=== PATIENT | female | born 1970 | race American Indian/Alaskan Native ===

== ENCOUNTER 2017-07-13 16:07 | Emergency (ER) | payer BC ==
[2017-07-13 16:33] VITALS: BP 130/82
[2017-07-13 17:01] LABS: Anion Gap 18 mmol/L; BUN/Creatinine Ratio 10; Blood Urea Nitrogen 6 mg/dL (7-17); Calcium 8.7 mg/dL (8.4-10.2); Carbon Dioxide 23 mmol/L (22-30); Chloride 102.4 mmol/L (98-107); Glucose 96 mg/dL (65-100); Potassium 4.1 mmol/L (3.6-5.0); Sodium 139 mmol/L (137-145)
[2017-07-13 17:05] LABS: Basophils % (Auto) 0.4 % (0.0-1.8); Eosinophils % (Auto) 1.7 % (0.0-4.3); Mean Corpuscular HGB Conc 29 % (30-34); Platelet Count 286 K/mm3 (140-440); Red Blood Count 4.53 M/mm3 (3.65-5.03); White Blood Count 8.9 K/mm3 (4.5-11.0)
[2017-07-13 17:06] LABS: Hematocrit 27.2 % (30.3-42.9); Hemoglobin 7.9 gm/dl (10.1-14.3); Mean Corpuscular Hemoglobin 18 pg (28-32); Mean Corpuscular Volume 60 fl (79-97); Red Cell Distribution Width 22.9 % (13.2-15.2)
== END 2017-07-13 23:00 | disposition left against medical advice (07) ==
LOC: ED 16:07
DX: R53.1 Weakness (principal); Z53.21 Procedure and treatment not carried out due to patient leaving prior to being seen by health care provider
CPT/HCPCS: 36415; 80048; 85025